=== PATIENT | male | born 2005 | race Caucasian/White ===

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

== ENCOUNTER → 2024-09-17 13:40 | Outpatient (BNVA) | payer MEDICAID, SELFPAY | PROVIDERS: Visit Provider Registered Nurse Neonatal Intensive Care | DX: R52 Pain, unspecified (principal) | CPT/HCPCS: 87400 ==